=== PATIENT | male | born 1975 ===

== ENCOUNTER 2019-02-25 23:24 | Emergency (ER) | payer SELFPAY ==
[2019-02-25] MEDS ORDERED: Albuterol-Ipratrop 3 mg / 0.5 (3 ml) UD ONE (23:46)
[2019-02-25] MEDS ORDERED: Albuterol-Ipratrop 3 mg / 0.5 (3 ml) UD INH STA ×2 (23:54)
[2019-02-26] MEDS ORDERED: Albuterol-Ipratrop 3 mg / 0.5 (3 ml) UD INH STA (00:06)
[2019-02-26 00:26] LABS: VENOUS BLOOD GAS BASE EXCESS 0.3 mmol/L (0.0-2.0); VENOUS BLOOD GAS PCO2 45 mmHg (40-60); VENOUS BLOOD GAS PO2 54 mm/Hg (30-55); VENOUS BLOOD PH 7.37 (7.32-7.43)
[2019-02-26 00:35] LABS: BASO % 0.6 % (0.0-2.0); EOS # 0.1 K/uL (0.0-0.7); EOS % 1.4 % (0.0-4.0); HEMOGLOBIN 16.4 g/dL (12.0-18.0); LYMPH # 0.6 K/uL (1.0-4.3); LYMPH % 8.7 % (20.0-40.0); MEAN CELL VOLUME 98.3 fl (80.0-94.0); MEAN CORPUSCULAR HEMOGLOBIN 32.8 pg (27.0-31.0); MEAN CORPUSCULAR HGB CONC 33.3 g/dL (33.0-37.0); MEAN PLATELET VOLUME 9.8 fl (7.2-11.7); MONO # 0.5 K/uL (0.0-0.8); MONO % 7.5 % (0.0-10.0); NEUT # 5.7 K/uL (1.8-7.0); NEUT % 81.8 % (50.0-75.0); PLATELET COUNT 164 K/uL (130-400); RBC 4.99 Mil/uL (4.40-5.90); RED CELL DISTRIBUTION WIDTH 14.9 % (11.5-14.5)
[2019-02-26 00:43] LABS: ALB/GLOB RATIO 1.5 (1.0-2.1); ALBUMIN 4.3 g/dL (3.5-5.0); ALT/SGPT 157 U/L (21-72); AST/SGOT 59 U/L (17-59); BLOOD UREA NITROGEN 22 mg/dl (9-20); GFR NON-AFRICAN AMERICAN > 60
[2019-02-26 00:55] LABS: B-TYPE NATRIURETIC PEPTIDE 969 pg/ml (0-450)
--- NOTE | 2019-02-26 01:27 | ED PDOC ---
HPI: Asthma Time Seen by Provider: 02/25/19 23:34 Chief Complaint (Nursing): Shortness Of Breath Chief Complaint (Provider): Shortness Of Breath History Per: Patient History/Exam Limitations: no limitations Onset/Duration Of Symptoms: Mins (15 [employer]) Associated Symptoms: Chest Pain (tightness) Additional Complaint(s): 43 years old male with history of obesity and asthma presents to ER for evaluation of shortness of breath and chest tightness after he had gone in an ar gument 15 minutes prior to arrival that triggered his asthma. Patient denies any recent illnesses. PMD: None provided Past Medical History Reviewed: Historical Data, Nursing Documentation, Vital Signs Vital Signs: Last Vital Signs Temp 97.6 F 02/25/19 23:27 Pulse 107 H 02/25/19 23:57 Resp 22 02/26/19 00:04 BP 157/110 H 02/25/19 23:58 Pulse Ox 97 02/26/19 00:04 - Medical History PMH: Asthma, Bronchitis - Surgical History Surgical History: No Surg Hx - Family History Family History: States: Unknown Family Hx - Social History Alcohol: Social Drugs: Denies - Home Medications Home Medications: Ambulatory Orders Medication Instructions Recorded Prednisone [Deltasone] 40 mg PO DAILY 3 Days #6 tablet 02/26/19 - Allergies Allergies/Adverse Reactions: Allergies Allergy/AdvReac Type Severity Reaction Status Date / Time No Known Allergies Allergy Verified 02/25/19 23:26 Review of Systems ROS Statement: Except As Marked, All Systems Reviewed And Found Negative Cardiovascular: Positive for: Chest Pain (tightness) Respiratory: Positive for: Shortness of Breath Physical Exam - Reviewed Nursing Documentation Reviewed: Yes Vital Signs Reviewed: Yes - Physical Exam Appears: Positive for: No Acute Distress Head Exam: Positive for: ATRAUMATIC, NORMOCEPHALIC Skin: Positive for: Normal Color, Warm, Dry Eye Exam: Positive for: Normal appearance, EOMI, PERRL ENT: Positive for: Normal ENT Inspection Neck: Positive for: Normal, Painless ROM, Supple Cardiovascular/Chest: Positive for: Regular Rate, Rhythm. Negative for: Murmur Respiratory: Positive for: Wheezing (Diffused prolonged expiratory wheeze and expiratory phase), Respiratory Distress, Other (Tachypnea) Gastrointestinal/Abdominal: Positive for: Normal Exam, Soft. Negative for: Tenderness Back: Positive for: Normal Inspection. Negative for: L CVA Tenderness, R CVA Tenderness Extremity: Positive for: Swelling (2+ pitting edema to knees) Neurological/Psych: Positive for: Awake, Alert, Oriented (x3) - Laboratory Results Result Diagrams: 02/25/19 23:50 02/25/19 23:50 Lab Results: pO2 54 mm/Hg (30-55) 02/26/19 00:22 VBG pH 7.37 (7.32-7.43) 02/26/19 00:22 VBG pCO2 45 mmHg (40-60) 02/26/19 00:22 VBG HCO3 24.9 mmol/L 02/26/19 00:22 VBG Total CO2 27.4 mmol/L (22-28) 02/26/19 00:22 VBG O2 Sat (Calc) 91.9 % (40-65) H 02/26/19 00:22 VBG Base Excess 0.3 mmol/L (0.0-2.0) 02/26/19 00:22 VBG Potassium 3.8 mmol/L (3.6-5.2) 02/26/19 00:22 Sodium 136.0 mmol/L (132-148) 02/26/19 00:22 Chloride 103.0 mmol/L (98-107) 02/26/19 00:22 Glucose 146 mg/dL (75-110) H 02/26/19 00:22 Lactate 1.2 mmol/L (0.7-2.1) 02/26/19 00:22 FiO2 21.0 % 02/26/19 00:22 Troponin I 0.0870 ng/mL (0.00-0.120) 02/25/19 23:50 NT-Pro-B Natriuret Pep 969 pg/ml (0-450) H 02/25/19 23:50 Total Bilirubin 0.8 mg/dl (0.2-1.3) 02/25/19 23:50 AST 59 U/L (17-59) 02/25/19 23:50 ALT 157 U/L (21-72) H 02/25/19 23:50 Alkaline Phosphatase 67 U/L (38-126) 02/25/19 23:50 Total Protein 7.2 G/DL (6.3-8.2) 02/25/19 23:50 Albumin 4.3 g/dL (3.5-5.0) 02/25/19 23:50 Globulin 2.9 gm/dL (2.2-3.9) 02/25/19 23:50 Albumin/Globulin Ratio 1.5 (1.0-2.1) 02/25/19 23:50 - ECG O2 Sat by Pulse Oximetry: 97 (RA) Pulse Ox Interpretation: Normal Medical Decision Making Medical Decision Making: Time: 2346 A/P: Moderate asthma exacerbation --Not concerned for pulmonary embolism, pneumonia, pneumothorax and ACS at this time --VBG --BTN --CMP --Troponin --EKG --CBC --Chest x-ray --Albuterol 3 ml --SOLU-Medrol 125 mg IVP --Peak flow pre/post treatment 0118 Patient significantly improved with no respiratory distress. Wheezing minimal Will continue monitoring 0204 Patient feels much improved, no longer wheezing, no distress, patient states all his symptoms have resolved. Will refer to cardiology for edema and [facility]. Scribe Attestation: Documented by Juliana Hdz, acting as a scribe for Ian Jaeger MD. Provider Scribe Attestation: All medical record entries made by the Scribe were at my direction and personally dictated by me. I have reviewed the chart and agree that the record accurately reflects my personal performance of the history, physical exam, medical decision making, and the department course for this patient. I have also personally directed, reviewed, and agree with the discharge instructions and disposition. Disposition - Clinical Impression Clinical Impression: Asthma - Disposition [facility] Rao Alexander MD [Staff Provider] - Disposition: Routine/Home Disposition Time: 02:04 Condition: IMPROVED Prescriptions: Prednisone [Deltasone] 40 mg PO DAILY 3 Days #6 tablet Instructions: Asthma, Adult (DC), Dependent Edema (DC) Forms: [facility] (Macedonian)
[2019-02-26 01:56] VITALS: BP 143/94; PULSE 104; RESP 20; TEMP 98.2
[2019-02-26 02:00] LABS: BANDS 1 % (0-2); BASOPHIL 1 % (0-2); EOSINOPHIL 2 % (0-7); LYMPHOCYTE 5 % (20-50); MONOCYTE 6 % (0-10); NEUTROPHIL 85 % (42-75); TOTAL CELLS COUNTED 100
[2019-02-26 02:01] LABS: ANISOCYTOSIS SLIGHT; HYPOCHROMIC SLIGHT; LARGE PLATELETS PRESENT; PLATELET ESTIMATE NORMAL (NORMAL); STOMATOCYTES SLIGHT
[2019-02-26 02:05] VITALS: O2SAT 97
--- NOTE | 2019-02-26 11:24 | RAD ---
Date of service: 02/25/2019 PROCEDURE: CHEST RADIOGRAPH, 1 VIEW HISTORY: sob COMPARISON: None available. FINDINGS: LUNGS: Clear. PLEURA: No pneumothorax or pleural fluid seen. CARDIOVASCULAR: No aortic atherosclerotic calcification present. Cardiomediastinal silhouette enlarged. OSSEOUS STRUCTURES: No significant abnormalities. VISUALIZED UPPER ABDOMEN: Normal. OTHER FINDINGS: None. IMPRESSION: No active disease.
--- NOTE | 2019-02-26 20:33 | CARD ---
APPROVED REPORT Date of service: 02/25/2019 EKG Measurement Heart [id number] <Conclusion> Sinus tachycardia Possible Left atrial enlargement Left axis deviation Right bundle branch block Abnormal ECG
== END 2019-02-26 01:55 | disposition home or self-care (01) ==
LOC: H.ER 23:24
DX: J45.901 Unspecified asthma with (acute) exacerbation (principal)
CPT/HCPCS: 71045; 80053; 82803; 83880; 84484; 85025; 93005; 96374; 99284; J2930